=== PATIENT | female | born 1965 | race African-American/Black ===

== ENCOUNTER 2025-03-14 10:45 | Emergency (ER) | payer BC, OTHER ==
[~2025-03-14] VITALS: Ht 165.1 cm; Wt 100.0 kg
[2025-03-14 10:47] VITALS: TEMP 98.4; O2SAT 99
[2025-03-14 11:13] LABS: BASOPHILS % 0.2 % (0.0-2.0); EOSINOPHILS % 0.5 % (0.0-5.0); HEMATOCRIT. 43.4 % (36.0-48.0); HEMOGLOBIN. 13.8 g/dL (12.0-16.0); LYMPHOCYTES % 8.3 % (20.0-50.0); MEAN PLATELET VOLUME 9.1 fl (7.4-10.4); MONOCYTES % 5.4 % (2.0-8.0); NEUTROPHILS % 85.6 % (40.0-76.0); PLATELET 331 x1000/uL (130-400); RED BLOOD CELL COUNT 5.29 mill/uL (4.2-5.4); RED CELL DISTRIBUTION WIDTH 14.9 % (11.6-14.6)
[2025-03-14 11:38] LABS: CREATININE 0.7 mg/dL (0.6-1.0); PROTEIN TOTAL 7.4 g/dL (6.0-8.3); UREA NITROGEN BLOOD 11 mg/dL (9-23)
[2025-03-14 11:40] LABS: ASPARTATE AMINOTRANSFERASE 18 IU/L (<34); BILIRUBIN DIRECT < 0.1 mg/dL (<=3.0); BILIRUBIN TOTAL 0.3 mg/dL (0.1-1.0)
[2025-03-14] MEDS: ONDANSETRON 4MG ODT PO NR (11:44)
[2025-03-14 13:20] VITALS: BP 15/91; PULSE 90; RESP 14; O2SAT 98
== END 2025-03-14 13:42 | disposition home or self-care (01) ==
LOC: ER 10:45
DX: R10.11 Right upper quadrant pain (principal); K80.20 Calculus of gallbladder without cholecystitis without obstruction; K76.0 Fatty (change of) liver, not elsewhere classified; R11.0 Nausea; Z87.01 Personal history of pneumonia (recurrent)
CPT/HCPCS: 99284; 76705; 80076; 80048; 83690; 85025; 36415; Q0162